=== PATIENT | male | born 1945 | race African-American/Black ===

== ENCOUNTER 2022-07-07 10:06 | Outpatient (CLI) | payer OTHER, SELFPAY ==
--- NOTE | ~2022-07-07 | NM_ITS ---
EXAMINATION: NM bone scan whole body DATE: 07/07/2022 15:38 INDICATION: Prostate cancer. TECHNIQUE: 25.9 mCi Tc-99m HDP was administered intravenously. Delayed whole-body scintigrams were o btained. COMPARISON: CT abdomen and pelvis 07/07/2022 FINDINGS: There is increased activity at right knee joint without radiographic comparison, likely ost eoarthritis. There is increased activity at the acromioclavicular joints without radiographic compari son, likely osteoarthritis. IMPRESSION: 1. No evidence of metastatic disease. Reviewed, dictated and finalized at location A. [employer]
--- NOTE | ~2022-07-07 | CT_ITS ---
EXAMINATION: CT abdomen pelvis wo con DATE: 07/07/2022 12:25 INDICATION: Prostate cancer. TECHNIQUE: Computed tomography (CT) of the abdomen and pelvis was performed without intravenous contr ast. Automated exposure control and iterative reconstruction technique were employed. The dose-length product was 200.79 mGy-cm. COMPARISON: Bone scan 07/07/2022 FINDINGS: The visualized portions of the lung bases demonstrate mild atelectasis. No pleural effusion . There is left atrial and left ventricular enlargement of the heart. There are coronary artery calci fications. No pericardial effusion. There is a moderate-sized sliding hiatal hernia. The liver, gallb ladder, spleen, pancreas, and adrenal glands are normal. There is a 12 mm cyst in right kidney. There is a 12 mm hemorrhagic cyst in left kidney. The prostate is mildly enlarged. There are bilateral ing uinal hernias containing fat. There is diverticulosis of the colon without evidence of diverticulitis . The appendix is normal. There is calcified atherosclerosis of the aorta and many of the other arter ies. There are no pathologically enlarged lymph nodes. There is no free intraperitoneal fluid. There is mild chronic anterior wedging of L1 vertebral body. There is mild lumbar spondylosis. IMPRESSION: 1. No evidence of metastatic disease. Reviewed, dictated and finalized at location A. E CUTTER
[2022-07-07 10:46] LABS: Estimated Glomerular Filt Rate 18
== END 2022-07-07 10:07 | disposition home or self-care (01) ==
PROVIDERS: PCP Internal Medicine; Visit Provider Urology
DX: C61 Malignant neoplasm of prostate (principal)
CPT/HCPCS: 74176; 78306; A9561

== ENCOUNTER 2022-10-31 10:37 | Outpatient (CLI) | payer OTHER, SELFPAY ==
--- NOTE | ~2022-10-31 | XR_ITS ---
EXAMINATION: XR chest 2V DATE: 10/31/2022 12:11 INDICATION: Malignant neoplasm of the prostate TECHNIQUE: PA and lateral views of the chest are obtained. COMPARISON: 02/01/2019 FINDINGS: The lungs are free of acute opacities. No pleural effusion or pneumothorax. The cardiomedia stinal silhouette is normal. There is mild thoracic spondylosis. IMPRESSION: 1. No acute cardiopulmonary abnormality. Reviewed, dictated and finalized at location B.
--- NOTE | 2022-10-31 11:31 | ECG_ITS ---
Measurements Intervals [place] Rate: 67 P: 22 ME: 165 QRS: -16 QRSD: 101 T: 162 QT: 407 QTc: 430 Interpretive Statements SINUS RHYTHM POSSIBLE LEFT ATRIAL ENLARGEMENT DELAYED PRECORDIAL R/S TRANSITION LEFT VENTRICULAR HYPERTROPHY AND ST-T CHANGE CONSIDER INFERIOR INFARCT, AGE INDETERMINATE T WAVE ABNORMALITY IN LATERAL LEADS- CONSIDER ISCHEMIA ABNORMAL ECG COMPARED TO ECG 02/01/2019 10:09:08 NO SIGNIFICANT CHANGES Electronically Signed On 10-31-2022 12:35:37 CDT by Navdeep Gil D.O.
[2022-10-31 12:09] LABS: Basophils Percent Auto 0.6 % (0.2-1.2); Eosinophils Absolute Auto 0.5 K/mm3 (0-0.3); Eosinophils Percent Auto 7.2 % (0-4.4); Hemoglobin 12.2 g/dL (14.0-18.0); Immature Granulocyte Absolute 0.01 K/mm3 (0.00-0.031); Immature Granulocyte Percent A 0.2 % (0-0.5); Lymphocytes Absolute Auto 2.16 K/mm3 (0.9-3.2); Mean Corpuscular HGB Conc 32.1 g/dl (32-36); Mean Corpuscular Hemoglobin 28.6 pg (26-34); Mean Platelet Volume 10.1 fl (7.4-10.4); Monocytes Absolute Auto 0.7 K/mm3 (0.1-0.6); Monocytes Percent Auto 11.3 % (2.6-8.5); Neutrophils Percent Auto 46.7 % (45.5-73.1); Platelet Count Result 217 k/mm3 (150-375); Red Blood Count 4.27 M/mm3 (4.6-6.20); Red Cell Distribution Width 14.5 % (11.5-14.5); White Blood Count 6.4 K/mm3 (4.5-10.0)
[2022-10-31 12:14] LABS: Appearance Urine Clear (Clear); Bacteria Urine None Seen /hpf; Bilirubin Urine Negative (Negative); Blood Urine Negative (Negative); Color Urine Yellow (Yellow); Glucose Urine UA Negative (Negative); Ketones Urine Negative (Negative); Leukocyte Esterase Ur Negative LEU/UL (Negative); Nitrate Urine Negative (Negative); Non Pathogenic Casts 0-2; Protein Urine 3+ mg/dL (Negative); RBC Urine 0-2 /hpf (0-2); Specific Grav Ur 1.017 (1.001-1.035); Squamous Epithelial Cell Urine None seen /hpf (Few); Urobilinogen Urine 0.2 mg/dL (<2.0); WBC Urine 0-5 /hpf; pH Urine 6.5 (5.0-9.0)
[2022-10-31 12:21] LABS: Prothrombin Time 13.1 Seconds (11.1-14.7)
[2022-10-31 12:22] LABS: Partial Thromboplastin Time 27.2 SECONDS (22.3-36.8)
[2022-10-31 12:23] LABS: Add Urine Microscopic? YES
[2022-10-31 12:35] LABS: Alanine Aminotransferase 38 U/L (6-50); Albumin Level 4.5 g/dL (3.5-5.1); Alkaline Phosphatase 100 U/L (38-126); Anion Gap 9 mmol/L (8-16); Aspartate Amino Transferase 35 U/L (17-59); Bilirubin,Total 0.6 mg/dL (0.2-1.3); Blood Urea Nitrogen 35 mg/dL (9-20); Calcium 9.3 mg/dL (8.4-10.2); Carbon Dioxide 23 mmol/L (22-30); Chloride 108 mmol/L (98-107); Estimated Glomerular Filt Rate 48; Glucose 127 mg/dL (65-110); Potassium 4.3 mmol/L (3.4-5.0); Sodium 140 mmol/L (137-145)
== END 2022-10-31 10:38 | disposition home or self-care (01) ==
LOC: ANHSURGERY 10:41
PROVIDERS: PCP Internal Medicine; Visit Provider Urology
DX: Z01.818 Encounter for other preprocedural examination (principal); C61 Malignant neoplasm of prostate; R94.31 Abnormal electrocardiogram [ECG] [EKG]
CPT/HCPCS: 36415; 71046; 80053; 81001; 85025; 85610; 85730; 86850; 86900; 86901; 93005

== ENCOUNTER 2022-11-06 00:26 | Day surgery (SDC) | payer OTHER, SELFPAY ==
--- NOTE | 2022-10-28 08:04 | PM.IMHP ---
H&P: HPI History of Present Illness Date/Time: 10/28/22 08:04 Chief Complaint: Prostate cancer Narrative: is patient has been challenging to manage because of his consistent noncompliance. In July 2018 he was found to have a PSA of 9.5 and a biopsy showing 5 of 12 cores with [place] 3+4=7 consistent with a favorable intermediate risk prostate cancer. prostate volume at the time of diagnosis was 16.7 g. Over the past 2 years we have seen rapid progression in his PSA. Repeat staging in June 2022 with bone scan and CT scan the abdomen pelvis showed no evidence of metastatic disease. I have encouraged him to seek definitive care and he has elected for a robotic prostatectomy with bilateral pelvic lymphadenectomy. He is aware the risk including, but not limited to, adverse cardiopulmonary events, urinary incontinence, erectile dysfunction and rectal injury. Review of Systems Cardiovascular: Cardiovascular: Denies chest pain, Denies lightheadedness, Denies palpitations and Denies dyspnea Respiratory: Respiratory: Denies dyspnea Gastrointestinal: Gastrointestinal: Denies diarrhea, Denies nausea and Denies vomiting Genitourinary: Genitourinary: Denies hematuria and Denies dysuria Endocrine: Endocrine: Denies palpitations Meds Home Medications and Allergies Allergies Allergy/AdvReac Type Severity Reaction Status Date / Time No Known Allergies Allergy Unverified 02/01/19 09:55 Exam Const: General: no acute distress Resp: Effort & Inspection: normal respiratory effort GI: Inspection: non-distended GI Palp: No abdominal tenderness and No Guarding due to palpation present (GI) Auscultation: normal bowel sounds Assessment and Plan Assessment and plan (1) Prostate cancer: Code(s): C61 - Malignant neoplasm of prostate Status: Acute Assessment and Plan: Robotic assisted laparoscopic radical prostatectomy with bilateral pelvic lymphadenectomy
--- NOTE | 2022-10-31 10:37 | PC.NURSE ---
PRE-OP INSTRUCTIONS, PLEASE READ CAREFULLY Report to the Outpatient Waiting Room, entrance under the green pavilion located off [facility], at time _0600_ on date _11/06/22_. Planned Procedure Time: _0730_. Time changes happen often and if your time is changed the preop area will call you the afternoon before. - You and your visitor will be asked to self-screen and do not enter if you have any COVID symptoms. - Only one visitor is requested with a max of two and NO children visitors are allowed at this time. - The patient visitor may be requested to leave or wait in car when not with patient due to distancing restrictions. - A mask is optional within the hospital at this time. VISITING HOURS 8AM-8PM Patients may have clear liquids (water, carbonated beverages, clear teas, apple juice) until 3 hours prior to surgery (0430 AM) with a maximum of 20 ounces. - No food from midnight until time of surgery Take the following medications with a SIP of water the morning of surgery: _AMLODIPINE, CLONIDINE, METOPROLOL, EYE DROP_ DO NOT STOP ANY OF YOUR OTHER PRESCRIPTION MEDICATIONS PRIOR TO SURGERY ?EXCEPT THE FOLLOWING Medications to discontinue per physician _NONE_, Date to take last dose Please no make-up, nail belarusian, hairspray, perfume, deodorant, or body powder the day of surgery. No jewelry (including any body piercings) or valuables the day of surgery, leave them at home. Please take a shower or bath the night before, or the morning of, surgery with an antibacterial soap. Wear comfortable, loose fitting clothing. - Jewelry must be removed prior to entering the operating room. Rings and piercings that are not removed may be cut off. - The hospital will not accept responsibility for valuables. - Please leave all valuables, including medications, at home the day of surgery. If you are going home after surgery, a licensed crew truck driver must drive you home. - NO public transportation without another adult if you receive anesthesia. - We recommend that an adult stay with you for 24 hours following discharge. - We also recommend that you do not drive, make important decision, drink alcoholic beverages, or take any drugs that were not prescribed by your health care provider for at least 24 hours after your discharge time. Follow any additional instructions given to you from your surgeon. If you or anyone in your household have experienced Covid symptoms in the past week, please notify your surgeon or the nurse liaison at the phone number below for possible testing. Instructions given to _PATIENT_and asked if any additional questions and then verbalized understanding. Patient advised to call surgeon office or pre surgery nurse liaison [phone] if any additional questions.
[2022-10-31 11:05] VITALS: BP 190/80; PULSE 66; RESP 20; TEMP 37.1; O2SAT 100; BMI 22.5
--- NOTE | 2022-11-05 15:14 | WPDANESEPPF ---
Anes - Initial Pre Proc Eval Procedure: Operation Date: 11/06/22 07:30 Proposed Procedures p Robotic Assisted Laparoscopic Prostatectomy with Bilateral Pelvic Lymph Node Dissection - Samir Mendez MD Date/Time: 11/05/22 15:14 Surgeon: Samir Mendez MD Pre Op Diagnosis: Prostate cancer Patient Data Age: 77 Gender: M Height: 1.65 m Weight: 61.5 kg Last Vital Signs Temp 37.1 C 10/31/22 11:05 Pulse 66 10/31/22 11:05 Resp 20 10/31/22 11:05 BP 190/80 H 10/31/22 11:05 Pulse Ox 100 10/31/22 11:05 O2 Del Method Room Air 10/31/22 11:05 Allergies Allergy/AdvReac Type Severity Reaction Status Date / Time No Known Allergies Allergy Unverified 10/31/22 10:57 Home Medications Medication Instructions Recorded Confirmed Type amlodipine 10 mg tablet 10 mg DAILY 10/31/22 10/31/22 History atorvastatin 40 mg tablet 40 mg DAILY 10/31/22 10/31/22 History clonidine HCl 0.2 mg tablet 0.2 mg TID 10/31/22 10/31/22 History dorzolamide 2 % eye drops 1 drp TID 10/31/22 10/31/22 History insulin glargine 100 unit/mL See Rx Instructions .Route .COMPLEX 10/31/22 10/31/22 History subcutaneous solution (Lantus U-100 Insulin) latanoprost 0.005 % eye drops 1 drp HS 10/31/22 10/31/22 History metoprolol tartrate 100 mg tablet 100 mg BID 10/31/22 10/31/22 History omeprazole 20 mg capsule,delayed 20 mg PO BID 10/31/22 10/31/22 History release pantoprazole 40 mg tablet,delayed 40 mg PO DAILY 10/31/22 10/31/22 History release Patient hx anesthesia problems: none Family hx anesthesia problems: none Results Review: All pre-operative results and documents have been reviewed as part of the pre-operative evaluation. [facility] Past Medical History Medical History (Updated 11/05/22 @ 15:15 by Geremias Thomas MD) Chronic GERD Diabetes HTN (hypertension) Hypercholesterolemia Prostate cancer Social History Social History Smoking status: Never smoker Second hand tobacco smoke exposure: No Alcohol intake: never Substance use: never Substance use type: does not use Additional living arrangements comments: LIVES WITH SIGNIFICANT OTHER Spiritual care concerns: No Anes - Eval Final PreProcedure Day of Procedure 11/05/22 15:14 Patient weight: normal Heart: regular rate and rhythm Lungs: clear to auscultation and normal air movement Airway: Mallampati scale class II Neurological: alert and oriented Last oral intake: >/= 8 hours ASA classification: III Emergent: no Anesthetic plan: proceed Anesthesia type and monitoring: general ETT Results Review: All pre-operative results and documents have been reviewed as part of the pre-operative evaluation. Informed Consent: The patient's anesthetic plan and its attendant risks and benefits were discussed with the patient/family/POA. Questions were solicited and answers provided to the satisfaction of the patient/family/POA.
[2022-11-06] VITALS (19 sets, daily range): BP systolic 132–182; BP diastolic 51–84; PULSE 65–89; RESP 15–22; TEMP 36.2–36.8; O2SAT 93–100
--- NOTE | 2022-11-06 06:19 | WPDHPUPDATE1 ---
History and Physical Update Update Date/Time: 11/06/22 06:19 History and Physical has been reviewed, including an updated exam of the patient. There are NO changes in the patient's condition. Risks, benefits, and alternatives have been discussed and questions answered. Patient agrees to proceed with procedure.
[2022-11-06] MEDS: LACTATED RINGERS 1,000 ML 30 ML IV CONT ×2 (06:40→08:27)
[2022-11-06 06:54] LABS: Glucose Point of Care 203 mg/dl (65-105)
[2022-11-06] MEDS: ceFAZolin 2 GM/D5W 50 ML 2 GM/50 ML BAG IVPB (07:50)
[2022-11-06 08:33] LABS: Glucose Point of Care 179 mg/dl (65-105)
--- NOTE | 2022-11-06 08:49 | W.PM.PROC2 ---
Procedure Note - Detailed Date of Procedure 11/06/22 Pre-op Diagnosis Prostate cancer Post-op Diagnosis Same Procedure Performed Laparoscopy, attempted robotic prostatectomy Surgeon Samir Mendez MD Anesthesia General Findings Extensive adhesions throughout the peritoneal cavity Description of Procedure patient is brought the op suite was prepped draped in routine sterile fashion while in dorsal lithotomy position after the uneventful induction of a general LMA anesthetic. A short midline supraumbilical incision is made and a Veress needle placement is attempted. It does not appear to be, by feel, appropriately placement in the peritoneal cavity and insufflation pressures were immediately high. I made a 2nd and 3rd similar attempt in the left upper quadrant and left lower quadrant with similar results. We extended the midline supraumbilical incision a bit and entered the peritoneal cavity via incision in the rectus fascia followed by the posterior rectus sheath. The peritoneal cavity was inspected both visually and palpably and shown to have extensive adhesions throughout. In light of this and our option for alternative ways to treat his prostate cancer we decided to forego attempted robotic prostatectomy today. The rectus fascia midline incision is closed with a running 0 PDS. Subcu tissues closed with a running 4-0 plain gut. Skin incisions are closed with 4-0 Vicryl subcuticular. Blood loss was negligible. Drains No Pathology None sent Complications No immediate complications Condition Stable Disposition PACU
--- NOTE | 2022-11-06 09:55 | SUR.PHASEI ---
0953 - Dr. Mendez at bedside talking with patient
--- NOTE | 2022-11-06 10:22 | SUR.PHASEI ---
1020 - dr. chaidez at bedside talking with pt. states that pt will be discharged home today. pt to go to op recovery and have meal tray and monitored for awhile. pt's Kelly aware.
[2022-11-06] MEDS: ONDANSETRON INJ 4 MG/2 ML VIAL IV PUSH (11:53)
[2022-11-06] MEDS: oxyCODONE HCL (*CRX) 5 MG TAB IR PO (11:54)
--- NOTE | 2022-11-06 14:44 | SUR.PHASEII ---
1400: Dr Thomas and Dr. Mendez aware of patient to DC via med cab.
== END 2022-11-06 14:20 | disposition home or self-care (01) ==
PROVIDERS: PCP Internal Medicine; Visit Provider Urology
PROC: 0VT04ZZ Resection of Prostate, Percutaneous Endoscopic Approach (ICD-10-PCS; CPT 55867; principal; 2022-11-06 07:30)
DX: C61 Malignant neoplasm of prostate (principal); K66.0 Peritoneal adhesions (postprocedural) (postinfection); Z53.8 Procedure and treatment not carried out for other reasons; I10 Essential (primary) hypertension; E11.9 Type 2 diabetes mellitus without complications; E78.00 Pure hypercholesterolemia, unspecified; K21.9 Gastro-esophageal reflux disease without esophagitis; Z79.4 Long term (current) use of insulin
CPT/HCPCS: 55866; 36415; 71046; 80053; 81001; 82948; 85025; 85610; 85730; 86850; 86900; 86901; 93005; A9270; J0690; J1100; J1170; J2405; J2704; J2710; J3010; J7030; J7120